=== PATIENT | female | born 1965 | race Caucasian/White ===

== ENCOUNTER 2017-09-09 08:11 | Outpatient (CLI) | payer OTHER ==
--- NOTE | 2017-09-09 11:23 | MMO ---
BILATERAL SCREENING MAMMOGRAM: Date: 09/09/17 HISTORY: Screening. COMPARISON: Mammogram dated 07/08/15. TECHNIQUE: Bilateral screening CC and MLO mammograms. This patient's mammogram was interpreted with the assistance of computer-aided detection. FINDINGS: There are scattered fibroglandular densities. No suspicious mass, microcalcifications, or architectur al distortion. IMPRESSION: BIRADS 2: Benign Finding(s) Continued annual mammographic screening is recommended. POS: [facility]
== END 2017-09-09 08:12 | disposition home or self-care (01) ==
LOC: SCSMAMMO 08:11
PROVIDERS: ATTEND Family Medicine
DX: Z12.31 Encounter for screening mammogram for malignant neoplasm of breast (principal)
CPT/HCPCS: 77067